=== PATIENT | male | born 1950 | race American Indian/Alaskan Native ===

== ENCOUNTER 2016-10-30 22:26 | Emergency (ER) | payer MEDICARE, OTHER ==
[2016-10-30 22:35] VITALS: BMI 26.4
[2016-10-30 22:38] VITALS: TEMP 97.8
--- NOTE | 2016-10-30 22:39 | ED PDOC ---
Arrival/HPI - General Time Seen by Provider: 10/30/16 22:27 Historian: Patient - History of Present Illness Narrative History of Present Illness (Text): 10/30/16 22:36 66 year old male, whose past medical history includes CHF, hypertension, Asthma , and ESRD on hemodialysis, presents to the emergency department complaining of shortness of breath that began today. Patient reports "my asthma is acting up." Patient states that his asthma was triggered due to a nose packing he got earlier today for epistaxis. Admits to tobacco use today. He reports that blocking his nose and feeling of packing in the back of his throat, triggered his asthma. He denies chest pain. Patient reports his last dialysis treatment was yesterday. He denies any fever, chills, chest pain, nausea, vomiting, diarrhea, urinary symptoms, back pain, neck pain, headache, dizziness. 10/31/16 01:26 Symptom Onset: Gradual Symptom Course: Unchanged Activities at Onset: Light Context: Home Past Medical History - Provider Review Nursing Documentation Reviewed: Yes Family/Social History - Physician Review Nursing Documentation Reviewed: Yes Family/Social History: No Known Family HX Allergies/Home Meds Allergies/Adverse Reactions: Allergies No Known Allergies Allergy (Unverified 10/30/16 22:39) Home Medications: Home Meds Medication Instructions Recorded Confirmed Atorvastatin [Lipitor] 1 tab PO DAILY 10/30/16 10/30/16 Cinacalcet [Sensipar] 1 tab PO DAILY 10/30/16 10/30/16 Clopidogrel [Plavix] 1 tab PO DAILY 10/30/16 10/30/16 Furosemide [Lasix] 1 tab PO DAILY 10/30/16 10/30/16 Sevelamer Carbonate [Renvela] 1 tab PO DAILY 10/30/16 10/30/16 amLODIPine [Norvasc] 1 tab PO DAILY 10/30/16 10/30/16 Review of Systems - Physician Review All systems were reviewed & negative as marked: Yes - Review of Systems Constitutional: absent: Fevers, Other (Chills) Eyes: absent: Vision Changes ENT: Epistaxis. absent: Voice Changes, Sore Throat, Rhinorrhea Respiratory: SOB. absent: Cough, Sputum Cardiovascular: absent: Chest Pain, Palpitations, Edema, Calf Pain, [place], Orthopnea, Syncope Gastrointestinal: absent: Abdominal Pain, Constipation, Diarrhea, Nausea, Vomiting Genitourinary Male: absent: Dysuria, Frequency, Hematuria Musculoskeletal: absent: Back Pain, Neck Pain Neurological: absent: Headache, Dizziness Psychiatric: absent: Anxiety Physical Exam Vital Signs Reviewed: Yes Vital Signs Temp Pulse Resp BP Pulse Ox 10/31/16 00:05 95 H 21 135/76 96 10/31/16 00:00 21 10/30/16 23:17 97 H 25 H 96/72 L 95 10/30/16 22:46 25 H 10/30/16 22:37 97.8 F 97 H 22 149/88 99 Temperature: Afebrile Blood Pressure: Normal Pulse: Regular Respiratory Rate: Normal Appearance: Positive for: Well-Appearing, Non-Toxic, Comfortable Pain Distress: None Mental Status: Positive for: Alert and Oriented X 3 - Systems Exam Head: Present: Atraumatic, Normocephalic Pupils: Present: PERRL Extroacular Muscles: Present: EOMI Conjunctiva: Present: Normal Mouth: Present: Moist Mucous Membranes Nose (Internal): Present: Other (Rapid rhino to the right nare) Neck: Present: Normal Range of Motion. No: Meningeal Signs Respiratory/Chest: Present: Wheezes (scant), Rales (rales at the bases). No: Accessory Muscle Use Cardiovascular: Present: Regular Rate and Rhythm, Normal S1, S2. No: Murmurs Abdomen: Present: Normal Bowel Sounds. No: Tenderness, Distention (Abdomen distented but soft), Peritoneal Signs, Rebound, Guarding Back: Present: Normal Inspection Upper Extremity: Present: Normal Inspection. No: Cyanosis, Edema Lower Extremity: Present: Normal Inspection. No: Edema Neurological: Present: GCS=15, CN II-XII Intact, Speech Normal Skin: Present: Warm, Dry, Normal Color. No: Rashes Psychiatric: Present: Alert, Oriented x 3, Normal Insight, Normal Concentration Medical Decision Making ED Course and Treatment: 10/30/16 22:36 Impression: 66 year old male complaining of asthma, triggered by nasal packing Differential Diagnosis included but are not limited to: Plan: -- EKG -- Labs -- Chest X-ray -- Duoneb -- Reassess and disposition Progress Notes: 10/30/16 22:54 EKG shows NSR at 96bpm with Qtc:482. Otherwise normal intervals and no ST changes 10/30/16 23:56 Labs significant for anemia and elevated creatinine, consistent with known ESRD dependent on HD. Trop negative. Cxray consistent with pulmonary venous congestion but patient reports that he is getting dialysis in the morning. On reevaluation, he reports that he feels better after 1 duoneb and is requesting to go home. Patient has been monitored in ED for 3 hours. He reports he will follow-up with PMD - Lab Interpretations Lab Results: 10/30/16 22:53 10/30/16 22:53 Lab Results 10/30/16 22:53: Sodium 139, Potassium 3.5 L, Chloride 95, Carbon Dioxide 27, Anion Gap 21 H, BUN 21, Creatinine 7.4 H, Est GFR ( Amer) 9, Est GFR (Non -Af Amer) 7, Random Glucose 82, Calcium 10.0, Total Bilirubin 1.5 H, AST 26, ALT 17, Alkaline Phosphatase 205 H, Troponin I 0.04, Total Protein 8.6 H, Albumin 4.3, Globulin 4.3, Albumin/Globulin Ratio 1.0 L 10/30/16 22:53: WBC 6.9, RBC 3.54, Hgb 10.2 L, Hct 30.7 L, MCV 86.7, MCH 28.8, MCHC 33.2, RDW 17.9 H, Plt Count 182, MPV 8.6, Gran % 66.3, Lymph % (Auto) 17.1 L, [place] % (Auto) 8.8 H, Eos % (Auto) 7.4 H, Baso % (Auto) 0.4, Gran # 4.58, Lymph # 1.2, [place] # 0.6, Eos # 0.5, Baso # 0.03 I have reviewed the lab results: Yes - RAD Interpretation Radiology Orders: 10/30/16 22:39 CHEST PORTABLE [RAD] Stat - EKG Interpretation Interpreted by ED Physician: Yes Type: 12 lead EKG - Medication Orders Current Medication Orders: Discontinued Medications Albuterol/Ipratropium (Duoneb 3 Mg/0.5 Mg (3 Ml) Ud) 3 ml IH STAT STA Stop: 10/30/16 22:41 Last Admin: 10/30/16 22:45 Dose: 3 ml - Scribe Statement The provider has reviewed the documentation as recorded by the Young Fernandez All medical record entries made by the Young were at my direction and personally dictated by me. I have reviewed the chart and agree that the record accurately reflects my personal performance of the history, physical exam, medical decision making, and the department course for this patient. I have also personally directed, reviewed, and agree with the discharge instructions and disposition. Disposition/Present on Arrival - Present on Arrival Any Indicators Present on Arrival: No - Disposition Have Diagnosis and Disposition been Completed?: Yes Diagnosis: Asthma exacerbation Disposition: HOME/ ROUTINE Disposition Time: 01:30 Patient Plan: Discharge Condition: GOOD Discharge Instructions (ExitCare): Asthma (ED) Additional Instructions: Continue nebulizer as needed. Go to dialysis in the morning as scheduled. Take antibiotics for nasal packing and follow-up with MD who placed packing for further instructions. Do not smoke. Return to ED if condition worsens. Follow -up with PMD within 2 days. Referrals: Be Ruth MD [Primary Care Provider] - Follow up with primary Forms: [employer] ([place])
[2016-10-30] MEDS ORDERED: Albuterol-Ipratrop 3 mg / 0.5 (3 ml) UD IH STA (22:40)
[2016-10-30 22:58] LABS: BASO # 0.03 K/mm3 (0.0-2.0); BASO % 0.4 % (0.0-3.0); EOS # 0.5 (0.0-0.7); EOS % 7.4 % (1.5-5.0); GRAN # 4.58 (1.4-6.5); GRAN % 66.3 % (50.0-68.0); HEMATOCRIT 30.7 % (42.0-52.0); LYMPH # 1.2 (1.2-3.4); LYMPH % 17.1 % (22.0-35.0); MEAN CELL VOLUME 86.7 fl (80.0-105.0); MEAN CORPUSCULAR HEMOGLOBIN 28.8 pg (25.0-35.0); MEAN CORPUSCULAR HGB CONC 33.2 g/dl (31.0-37.0); MEAN PLATELET VOLUME 8.6 fl (7.0-11.0); MONO # 0.6 (0.1-0.6); MONO % 8.8 % (1.0-6.0); RED CELL DISTRIBUTION WIDTH 17.9 % (11.5-14.5); WHITE BLOOD COUNT 6.9 10^3/ul (4.5-11.0)
[2016-10-30 23:07] LABS: BILIRUBIN,TOTAL 1.5 mg/dL (0.2-1.3); POTASSIUM 3.5 mmol/L (3.6-5.0); TOTAL PROTEIN 8.6 g/dL (5.8-8.3)
[2016-10-30 23:29] LABS: TROPONIN I 0.04 ng/mL
[2016-10-31 00:06] VITALS: BP 135/76; PULSE 95; RESP 21; O2SAT 96
--- NOTE | 2016-10-31 08:09 | RAD ---
HISTORY: shortness of breath COMPARISON: No prior. FINDINGS: LUNGS: No active pulmonary disease. PLEURA: No significant pleural effusion identified, no pneumothorax apparent. CARDIOVASCULAR: There is mild cardiomegaly. There is moderate vascular congestion and interstitial edema OSSEOUS STRUCTURES: No significant abnormalities. VISUALIZED UPPER ABDOMEN: Normal. OTHER FINDINGS: None. IMPRESSION: CHF
--- NOTE | 2016-10-31 15:29 | CARD ---
APPROVED REPORT EKG Measurement Heart [id number] <Conclusion> Normal sinus rhythm Prolonged QT Abnormal ECG
== END 2016-10-31 01:16 | disposition home or self-care (01) ==
LOC: ED 22:26 → MERGE 22:26 → ED 10-31 01:16
DX: J45.901 Unspecified asthma with (acute) exacerbation (principal); Z72.0 Tobacco use